=== PATIENT | male | born 1995 | race Caucasian/White ===

== ENCOUNTER 2023-09-09 14:20 | Emergency (ER) | payer OTHER ==
[2023-09-09 14:46] LABS: BASOPHILS PERCENT AUTO 0.4 % (0.0-1.0); EOSINOPHILS PERCENT AUTO 0.8 % (1.0-3.0); HEMATOCRIT 41.2 % (40.0-54.0); HEMOGLOBIN 13.8 g/dL (14.0-18.0); LYMPHOCYTES PERCENT AUTO 30.7 % (20.5-50.1); MEAN CORPUSCULAR HEMOGLOBIN 30.1 pg (27.0-34.0); MEAN CORPUSCULAR HGB CONC 33.5 g/dL (33.0-35.0); MEAN CORPUSCULAR VOLUME 89.8 fL (80-100); MONOCYTES PERCENT AUTO 4.7 % (2-8); NEUTROPHILS PERCENT AUTO 63.4 % (42.2-75.2); PLATELET COUNT,PLT 314 10^3/uL (150-450); RED BLOOD CELL COUNT 4.59 10^6/uL (4.6-6.2); WHITE BLOOD CELL COUNT,WBC 7.1 10^3/uL (5.0-10.0)
[2023-09-09] MEDS: Morphine 2 MG/ML SYRINGE IVPUSH ONE (14:48)
[2023-09-09] MEDS: Sodium Chloride 0.9% 1,000 ML IV ONE (14:48)
[2023-09-09] MEDS: ceFAZolin 2 GM Vial IVPUSH ONE (14:48)
[2023-09-09] MEDS: Ondansetron 4 MG/2 ML SDV IVPUSH ONE (14:48)
[2023-09-09] MEDS: Diphtheria,Pertussis(Acell),Tetanus Vaccine 0.5 ML Syringe IM ONE (14:49)
[2023-09-09 15:06] LABS: A/G RATIO 1.3; ALANINE AMINOTRANSFERASE,ALT 31 U/L (16-63); ALBUMIN 3.8 g/dL (3.4-5.0); ALKALINE PHOSPHATASE 67 U/L (46-116); ASPARTATE AMNIOTRANSFERASE,AST 17 U/L (15-37); BILIRUBIN TOTAL 0.6 mg/dL (0.2-1.0); BLOOD UREA NITROGEN,BUN 20 mg/dL (7-18); CALCIUM 8.7 mg/dL (8.5-10.1); CARBON DIOXIDE,CO2 29 mmol/L (21-32); CHLORIDE,CL 105 mmol/L (98-107); CREATININE 1.33 mg/dL (0.70-1.30); GLUCOSE RANDOM 159 mg/dL (70-99); PROTEIN TOTAL,TP 6.8 g/dL (6.4-8.2); SODIUM,NA 142 mmol/L (136-145)
[2023-09-09 15:07] LABS: ESTIMATED GFR 74 mL/min (>=60)
[2023-09-09 15:12] LABS: PROTHROMBIN TIME 10.2 SEC (9.0-12.0)
[2023-09-09] MEDS: fentaNYL 100 MCG/2 ML SDV IVPUSH ONE ×2 (15:12→16:39)
== END 2023-09-09 17:05 ==
LOC: DL.ED 14:20
DX: S67.22XA Crushing injury of left hand, initial encounter (principal); S62.321B Displaced fracture of shaft of second metacarpal bone, left hand, initial encounter for open fracture; N17.9 Acute kidney failure, unspecified; Z23 Encounter for immunization; F17.210 Nicotine dependence, cigarettes, uncomplicated; W23.0XXA Caught, crushed, jammed, or pinched between moving objects, initial encounter
CPT/HCPCS: 36415; 73130-LT; 80053; 85025; 85610; 90471; 90715; 96361; 96374; 96375; 96376; 99284; 99285-25; J0690; J2270; J2405; J3010; J7030